=== PATIENT | male | born 1960 | race Caucasian/White ===

== ENCOUNTER 2018-03-02 12:08 | Emergency (ER) | payer MEDICARE, OTHER ==
[2018-03-02] MEDS: IV NORMAL SALINE 1000ML BAG 1,000 ML IV ×2 (12:55→15:00)
[2018-03-02 13:53] LABS: ADD MAN DIFF? NO
[2018-03-02 13:56] LABS: BASO % 0 % (0-3); EOS % 0 % (0-3); HEMATOCRIT 39.3 % (39.0-53.0); HEMOGLOBIN 14.3 g/dL (13.0-17.5); LYMPH # 1.9 x10^3/uL (1.0-4.8); LYMPH % 22 % (24-48); MEAN CORPUSCULAR HEMOGLOBIN 35 pg (25-35); MEAN CORPUSCULAR HGB CONC 36 g/dL (31-37); MEAN CORPUSCULAR VOLUME 96 fL (79-100); MONO # 1.1 x10^3/uL (0.0-1.1); MONO % 13 % (0-9); NEUT # 5.5 x10^3uL (1.8-7.7); NEUT % 65 % (31-73); PLATELET COUNT 123 x10^3/uL (140-400); RED BLOOD COUNT 4.08 x10^6/uL (4.30-5.70); RED CELL DISTRIBUTION WIDTH 12.9 % (11.5-14.5); WHITE BLOOD COUNT 8.6 x10^3/uL (4.0-11.0)
[2018-03-02 14:05] LABS: INR 1.2 (0.8-1.1); PROTHROMBIN TIME PATIENT 14.9 SEC (11.7-14.0)
[2018-03-02 14:15] LABS: ANION GAP 11 (6-14); BLOOD UREA NITROGEN 12 mg/dL (8-26); BUN/CREATININE RATIO 13 (6-20); CALCIUM 8.4 mg/dL (8.5-10.1); CARBON DIOXIDE 22 mmol/L (21-32); CHLORIDE 92 mmol/L (98-107); CREATININE 0.9 mg/dL (0.7-1.3); GFR 87.3; GLUCOSE 144 mg/dL (70-99); POTASSIUM 3.5 mmol/L (3.5-5.1); SODIUM 125 mmol/L (136-145)
[2018-03-02 14:17] LABS: ETHANOL < 10 mg/dL (0-10)
[2018-03-02 14:19] LABS: BILIRUBIN,URINE NEGATIVE (NEG); CLARITY,URINE CLEAR; GLUCOSE,URINE NEGATIVE (NEG); NITRITE,URINE NEGATIVE (NEG); PROTEIN,URINE NEGATIVE (NEG-TRACE)
[2018-03-02 14:21] LABS: ALBUMIN 3.7 g/dL (3.4-5.0); ALBUMIN/GLOBULIN RATIO 0.8 (1.0-1.7); ALK PHOS 72 U/L (46-116); ALT (SGPT) 33 U/L (16-63); AST (SGOT) 26 U/L (15-37); CREATINE KINASE 267 U/L (39-308); LIPASE 121 U/L (73-393); TOTAL BILIRUBIN 1.1 mg/dL (0.2-1.0); TOTAL PROTEIN 8.1 g/dL (6.4-8.2)
[2018-03-02 14:22] LABS: TROPONINI < 0.017 ng/mL (0.000-0.055)
[2018-03-02 14:26] LABS: BARBITURATES NEG (NEG); BENZODIAZEPINES NEG (NEG); CANNABINOIDS NEG (NEG); COCAINE NEG (NEG); METHADONE NEG (NEG); OPIATES NEG (NEG); PHENCYCLIDINE NEG (NEG)
[2018-03-02 14:27] LABS: AMPHETAMINE/METHAMPHETAMINE POS (NEG); ETHANOL, URINE NEG (NEG)
[2018-03-02 14:29] LABS: THYROID STIM HORMONE (TSH) 0.859 uIU/mL (0.358-3.74)
[2018-03-02 14:31] LABS: COLOR,URINE STRAW
[2018-03-02 14:32] LABS: BACTERIA,URINE 0 /HPF (0-FEW); RBC,URINE 0 /HPF (0-2); SQUAMOUS EPITHELIAL CELL,UR OCC /LPF; WBC,URINE 0 /HPF (0-4)
[2018-03-02 14:37] LABS: D-DIMER 2.99 ug/mlFEU (0.00-0.50)
[2018-03-02] MEDS: ACETAMINOPHEN 500 MG TABLET PO (15:00)
[2018-03-02] MEDS ORDERED: CONTRAST GIVEN. MC (15:15)
[2018-03-02] MEDS: IOHEXOL 300 MG/ML 100ML VIAL. IV (15:15)
== END 2018-03-02 18:30 ==
LOC: ER 12:08
DX: F15.10 Other stimulant abuse, uncomplicated (principal); R07.89 Other chest pain; F41.9 Anxiety disorder, unspecified; Z59.0 Homelessness
CPT/HCPCS: 36415; 71045; 71275; 80053; 80307; 81001; 82550; 83690; 84443; 84484; 85025; 85379; 85610; 93005; 96374; 96375; 96376; 99285-25; G0480; J2060; J7030; Q9967